=== PATIENT | female | born 1985 | race Caucasian/White ===

== ENCOUNTER 2025-05-30 08:04 | Emergency (ER) | payer BC ==
[2025-05-30] MEDS: Ketorolac 30 MG/ML SDV IM ONE (08:29)
== END 2025-05-30 09:01 | disposition home or self-care (01) ==
LOC: VM.ED 08:04
DX: M54.50 Low back pain, unspecified (principal); Z79.899 Other long term (current) drug therapy
CPT/HCPCS: 96372; 99283; A9270; J1885